=== PATIENT | male | born 1970 | race Caucasian/White ===

== ENCOUNTER 2017-11-04 00:49 | Emergency (ER) | payer SELFPAY ==
[~2017-11-04] VITALS: Ht 180.3 cm; Wt 76.6 kg
[~2017-11-04 00:49] MED LIST: DARV PO; ERYT.5%O OD; MEDR4PAK3 PO
[2017-11-04 00:55] VITALS: BP 120/69; PULSE 51; RESP 16; TEMP 97.8; O2SAT 96
[2017-11-04] MEDS ORDERED: PENICILLIN V POTASSIUM 500 MG TAB PO ONE (01:45)
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
[2017-11-04] MEDS ORDERED: PENI500T PO (02:00)
== END 2017-11-04 02:05 | disposition home or self-care (01) ==
LOC: PHED 00:49
DX: K04.7 Periapical abscess without sinus (principal); L98.8 Other specified disorders of the skin and subcutaneous tissue; K02.9 Dental caries, unspecified; J45.909 Unspecified asthma, uncomplicated; F12.10 Cannabis abuse, uncomplicated; F17.200 Nicotine dependence, unspecified, uncomplicated
CPT/HCPCS: 99283